=== PATIENT | female | born 1995 | race Two or more races ===

== ENCOUNTER → 2019-07-13 | Outpatient (CLI) | payer OTHER ==
[~2019-07-13] MED LIST: PRENATAL CAPLE1 EAC1 PO
== END | disposition home or self-care (01) ==
LOC: PRENATAL 15:30
DX: O26.843 Uterine size-date discrepancy, third trimester (principal); O36.8131 Decreased fetal movements, third trimester, fetus 1; O48.0 Post-term pregnancy

== ENCOUNTER 2019-07-16 08:01 | Inpatient (IN) | payer OTHER ==
[~2019-07-16] VITALS: Ht 142.2 cm; Wt 2.7 kg
[2019-07-16] MEDS ORDERED: PRENATAL CAPLE1 EAC1 PO (10:40)
== END 2019-07-18 12:29 | disposition home or self-care (01) | DRG 788 ==
LOC: OB/GYN 08:01 → LDR 08:01 → O/R 11:00 → OB/GYN 13:43
PROVIDERS: ADMIT Specialist
PROC: 4A1HXCZ Monitoring of Products of Conception, Cardiac Rate, External Approach (ICD-10-PCS; 2019-07-16)
PROC: 10D00Z1 Extraction of Products of Conception, Low, Open Approach (ICD-10-PCS; principal; 2019-07-16 11:00)
DX: O65.8 Obstructed labor due to other maternal pelvic abnormalities (principal); Z3A.40 40 weeks gestation of pregnancy; Z37.0 Single live birth

== ENCOUNTER 2022-11-02 09:43 | Outpatient (CLI) | payer OTHER | END 2022-11-02 10:32 | disposition home or self-care (01) | LOC: NST 09:43 | PROVIDERS: ATTEND Obstetrics & Gynecology | DX: Z34.83 Encounter for supervision of other normal pregnancy, third trimester (principal) ==

== ENCOUNTER 2022-11-02 13:22 | Inpatient (IN) | payer OTHER ==
[~2022-11-02] VITALS: Ht 142.2 cm; Wt 3.2 kg
== END 2022-11-12 16:12 | disposition home or self-care (01) | DRG 785 ==
LOC: OB/GYN 11-10 08:01 → O/R 11-10 08:01 → OB/GYN 11-10 12:45
PROVIDERS: Obstetrics & Gynecology Gynecology; ADMIT Obstetrics & Gynecology; ATTEND Obstetrics & Gynecology
PROC: 0UB70ZZ Excision of Bilateral Fallopian Tubes, Open Approach (ICD-10-PCS; 2022-11-10)
PROC: 4A1HXCZ Monitoring of Products of Conception, Cardiac Rate, External Approach (ICD-10-PCS; 2022-11-10)
PROC: 10D00Z1 Extraction of Products of Conception, Low, Open Approach (ICD-10-PCS; principal; 2022-11-10 12:45)
DX: O34.211 Maternal care for low transverse scar from previous cesarean delivery (principal); Z30.2 Encounter for sterilization; Z3A.39 39 weeks gestation of pregnancy; Z37.0 Single live birth; Z20.822 Contact with and (suspected) exposure to COVID-19